=== PATIENT | male | born 1960 | race Caucasian/White ===

== ENCOUNTER → 2017-05-29 | Outpatient (CLI) | payer OTHER ==
[2017-05-29 10:50] LABS: CH 31.3; CHCM 34.4; HCT 46.9 % (39.0-53.0); HDW 2.73; HGB 15.9 gm/dL (13.0-17.5); MCHC 33.9 g/dL (31.0-37.0); MCV 91.6 fL (80.0-100.0); Mean Platelet Volume 6.8; RBC 5.13 m/uL (4.30-5.90); RDW 12.6 % (11.5-15.5); WBC 6.7 k/uL (3.8-10.6)
[2017-05-29 10:57] LABS: Appearance,Urine Clear (Clear); Bilirubin,Urine Negative (Negative); Glucose,Urine (UA) Negative (Negative); Ketones,Urine Negative (Negative); Leukocyte Esterase,Urine Negative (Negative); Nitrite,Urine Negative (Negative); Protein,Urine Trace (Negative); Specific Gravity,Urine 1.018 (1.001-1.035); UA Billing (MACRO vs. MICRO) CHEM; Urobilinogen,Urine <2.0 mg/dL (<2.0)
[2017-05-29 11:09] LABS: ALT 39 U/L (21-72); AST 21 U/L (17-59); Alkaline Phosphatase 88 U/L (38-126); Anion Gap 7 mmol/L; Blood Urea Nitrogen 21 mg/dL (9-20); Calcium 9.8 mg/dL (8.4-10.2); Carbon Dioxide 28 mmol/L (22-30); Chloride 102 mmol/L (98-107); Cholesterol 211 mg/dL (<200); Glucose 95 mg/dL (74-99); HDL Cholesterol 58 mg/dL (40-60); Non-African American GFR(MDRD) >60 (>60 ml/min/1.73 sqM); Potassium 4.6 mmol/L (3.5-5.1); Sodium 137 mmol/L (137-145); Total Bilirubin 0.9 mg/dL (0.2-1.3); Total Protein 7.5 g/dL (6.3-8.2)
== END | disposition home or self-care (01) ==
LOC: LABWHC1 09:56
PROVIDERS: ATTEND Internal Medicine
DX: E78.5 Hyperlipidemia, unspecified (principal); I10 Essential (primary) hypertension; Z12.5 Encounter for screening for malignant neoplasm of prostate
CPT/HCPCS: 80061; 80053; 85027; 81003; 36415; G0103

== ENCOUNTER → 2018-06-13 | Outpatient (CLI) | payer OTHER ==
[2018-06-13 10:36] LABS: HCT 50.3 % (39.0-53.0); HGB 16.4 gm/dL (13.0-17.5); MCH 30.2 pg (25.0-35.0); MCHC 32.7 g/dL (31.0-37.0); MCV 92.4 fL (80.0-100.0); Mean Platelet Volume 6.9; Platelet Count 261 k/uL (150-450); RBC 5.44 m/uL (4.30-5.90); RDW 12.9 % (11.5-15.5)
[2018-06-13 11:08] LABS: Appearance,Urine Clear (Clear); Bilirubin,Urine Negative (Negative); Blood,Urine Negative (Negative); Color,Urine Yellow; Glucose,Urine (UA) Negative (Negative); Ketones,Urine Negative (Negative); Leukocyte Esterase,Urine Negative (Negative); Nitrite,Urine Negative (Negative); Protein,Urine Negative (Negative); Urobilinogen,Urine <2.0 mg/dL (<2.0)
[2018-06-13 17:33] LABS: Albumin 4.6 g/dL (3.80-4.90); Albumin/Globulin Ratio 2.19 (1.20-2.10); Anion Gap 8.8 mmol/L (4.00-12.00); Calcium 9.7 mg/dL (8.7-10.3); Carbon Dioxide 28.2 mmol/L (21.6-31.8); Globulin 2.1 g/dL (2.1-3.7); LDL Cholesterol,Calculated 80.6 mg/dL (0.0-131.0); Potassium 4.5 mmol/L (3.5-5.5); Total Bilirubin 0.8 mg/dL (0.2-1.2); Total Protein 6.7 g/dL (6.2-8.2); VLDL Calculation 34.4 mg/dL (5.00-40.00)
== END | disposition home or self-care (01) ==
LOC: LABWHC1 09:51
PROVIDERS: ATTEND Internal Medicine
DX: Z00.00 Encounter for general adult medical examination without abnormal findings (principal); I10 Essential (primary) hypertension; Z12.5 Encounter for screening for malignant neoplasm of prostate
CPT/HCPCS: 80061; 80053; 84443; 85027; 81003; 36415; G0103

== ENCOUNTER 2018-12-25 08:20 | Day surgery (SDC) | payer OTHER ==
[2018-12-23 11:07] VITALS: BMI 29.5
[~2018-12-25 08:20] MED LIST: LIDOCAINE 1% 20 ML VIAL (10MG/ML) FOR IV START INTRADERMA PRN
[2018-12-25 08:37] VITALS: TEMP 97.6
[2018-12-25] MEDS: LACTATED RINGERS 1,000 ML IV SCH ×2 (08:43→09:17)
[2018-12-25] MEDS ORDERED: PROPOFOL 10 MG/ML 20 ML VIAL IV ONE (09:17)
[2018-12-25] MEDS ORDERED: MIDAZOLAM 2 MG/2 ML VIAL ONE (09:17)
[2018-12-25 10:26] VITALS: PULSE 82
--- NOTE | 2018-12-25 10:28 | P.PCN ---
Date of Procedure: 12/25/18 Description of Procedure: BRIEF HISTORY: Pleasant 58-year-old male who presents for screening for malignant colon cancer. The patient denies any symptoms of abdominal pain, weight loss, blood per rectum or change in his bowel habits. No prior colonoscopy reported. No family history of colon cancer. PROCEDURE PERFORMED: Colonoscopy with polypectomy. PREOPERATIVE DIAGNOSIS: Colorectal cancer screening, no prior colonoscopy reported. ESTIMATED BLOOD LOSS: Minimal. IV sedation per Anesthesia. PROCEDURE: After informed consent was obtained, the patient, was brought into the endoscopy unit. IV sedation was administered by Anesthesia under continuous monitoring. Digital rectal examination was normal. Initially the Olympus CF-190 flexible video colonoscope was then inserted in the rectum, gradually advanced into the cecum without any difficulty. Careful examination was performed as the scope was gradually being withdrawn. Ileocecal valve and the appendiceal orifice were visualized and appeared normal. Prep was good. Mucosa of the cecum, ascending colon, transverse colon, descending colon, sigmoid colon, and rectum appeared normal. A small polyp in the sigmoid colon measuring 2 mm in size was removed with cold forcep polypectomy. Retroflexion was performed in the rectum and no lesions were seen, with mild internal hemorrhoids noted. The patient tolerated the procedure well. IMPRESSION: Diminutive sigmoid polyp removed with cold forcep polypectomy. Mild internal hemorrhoids. Normal-appearing colon from rectum to cecum. RECOMMENDATIONS: Findings of this examination were discussed with the patient and his . Okay to resume diet. Await pathology from polypectomy. Anticipate repeat colonoscopy in 5 years pending pathology from polypectomy.
[2018-12-25 10:44] VITALS: BP 113/75; RESP 18
== END 2018-12-25 11:14 | disposition home or self-care (01) ==
LOC: ORWHC2ENDO 08:20
PROVIDERS: ATTEND Internal Medicine
DX: Z12.11 Encounter for screening for malignant neoplasm of colon (principal); K63.5 Polyp of colon; K64.8 Other hemorrhoids; I10 Essential (primary) hypertension; N40.0 Benign prostatic hyperplasia without lower urinary tract symptoms; Z79.899 Other long term (current) drug therapy; Z79.82 Long term (current) use of aspirin; Z87.891 Personal history of nicotine dependence
CPT/HCPCS: 88305; 45380; J2250; J2704

== ENCOUNTER → 2021-06-13 | Outpatient (CLI) | payer BC | LOC: CPPFTMAIN 07:28 | PROVIDERS: ATTEND Internal Medicine | DX: R05.3 Chronic cough (principal); Z87.891 Personal history of nicotine dependence | CPT/HCPCS: 94060; 94726; 94729 ==

== ENCOUNTER → 2021-06-20 | Outpatient (CLI) | payer BC ==
[2021-06-20 10:41] LABS: Basophils % (A) 1 %; Eosinophils # (A) 0.1 k/uL (0-0.7); Eosinophils % (A) 1 %; HGB 16.6 gm/dL (13.0-17.5); Lymphocytes % (A) 23 %; MCH 31.7 pg (25.0-35.0); MCHC 33.8 g/dL (31.0-37.0); MCV 93.8 fL (80.0-100.0); Mean Platelet Volume 7.2; Monocytes # (A) 0.6 k/uL (0-1.0); Monocytes % (A) 7 %; Neutrophils # (A) 5.8 k/uL (1.3-7.7); Neutrophils % (A) 67 %; Platelet Count 229 k/uL (150-450); RBC 5.23 m/uL (4.30-5.90); RDW 12.3 % (11.5-15.5); WBC 8.7 k/uL (3.8-10.6)
== END | disposition home or self-care (01) ==
LOC: LABWHC1 10:04
PROVIDERS: ATTEND Internal Medicine
DX: D72.829 Elevated white blood cell count, unspecified (principal)
CPT/HCPCS: 36415; 85025

== ENCOUNTER → 2021-12-20 | Outpatient (CLI) | payer BC ==
--- NOTE | 2021-12-20 16:03 | XR ---
EXAMINATION TYPE: XR knee complete LT DATE OF EXAM: 12/20/2021 COMPARISON: None available INDICATION: Pain TECHNIQUE: 3 views of the left knee FINDINGS: Marked degenerative changes of the left knee joint with osteophytosis, narrowing of the medial tibiof emoral compartment, subchondral sclerotic changes, narrowing of the patellofemoral compartment and pa tellofemoral osteophytosis. Mild lateral tibial subluxation in relation to the femur. No definite acute fracture line identified. No patellar dislocation. Questionable small to moderate knee joint effusion. IMPRESSION: Advanced degenerative changes as described above.
== END | disposition home or self-care (01) ==
LOC: RADXRMAIN 13:43
PROVIDERS: ATTEND Internal Medicine
DX: M17.12 Unilateral primary osteoarthritis, left knee (principal)

== ENCOUNTER → 2022-04-30 | Outpatient (CLI) | payer BC ==
--- NOTE | 2022-04-30 12:18 | CT ---
EXAMINATION TYPE: CT left knee - [facility] Protocol DATE OF EXAM: 04/30/2022 COMPARISON: None HISTORY: Left knee pain-[facility] surgical planning CT DLP: 599.[address] [facility] surgical planning CT left knee was performed with CT obtained from the hips through the bilatera l ankles. FINDINGS: Mild degenerative narrowing is seen about the bilateral hips. No fracture or osseous lesion noted. Severe degenerative narrowing noted about the medial tibiofemoral joint space with associated spur formation. Moderate degenerative narrowing patellofemoral joint space with associated spur form ation noted as well. No evidence for acute fracture or osseous lesion. The ankles are unremarkable bi laterally. IMPRESSION: [facility] surgical planning CT left knee
== END | disposition home or self-care (01) ==
LOC: RADCTMAIN 09:33
PROVIDERS: ATTEND Orthopaedic Surgery
DX: M17.12 Unilateral primary osteoarthritis, left knee (principal)

== ENCOUNTER → 2022-05-21 | Outpatient (CLI) | payer BC ==
[2022-05-21 12:57] LABS: INR 0.9 (<1.2); Partial Thromboplastin Time 25.3 sec (22.0-30.0); Prothrombin Time 10.4 sec (9.0-12.0)
[2022-05-21 13:03] LABS: Appearance,Urine Clear (Clear); Bilirubin,Urine Negative (Negative); Blood,Urine Trace (Negative); Color,Urine Yellow; Glucose,Urine (UA) Negative (Negative); Hyaline Casts,Urine 1 /lpf (0-2); Ketones,Urine Negative (Negative); Leukocyte Esterase,Urine Negative (Negative); Mucus,Urine Many /hpf; Nitrite,Urine Negative (Negative); Protein,Urine Trace (Negative); RBC,Urine 1 /hpf (0-5); Specific Gravity,Urine 1.024 (1.001-1.035); Squamous Epithelial Cell,Urine <1 /hpf (0-4); Urobilinogen,Urine <2.0 mg/dL (<2.0); WBC,Urine 1 /hpf (0-5)
[2022-05-21 18:09] LABS: HCT 47.8 % (39.6-50.0); HGB 16.1 g/dL (13.0-17.0); MCH 31.2 pg (27.0-32.0); MCHC 33.7 g/dL (32.0-37.0); MCV 92.6 fL (80.0-97.0); Mean Platelet Volume 10.6 fL (9.5-12.2); NRBC Per 100 WBC 0 /100 WBCS (0.0-0.0); Platelet Count 260 X 10*3/uL (140-440); RBC 5.16 X 10*6/uL (4.40-5.60); RDW 12.5 % (11.5-14.5)
[2022-05-21 19:59] LABS: African American GFR (CKD) 110.2 (60.0-200.0); Albumin 4.6 g/dL (3.8-4.9); Albumin/Globulin Ratio 1.98 (1.60-3.17); Anion Gap 9.6 mmol/L (10.00-18.00); BUN/Creat Ratio 19.88 Ratio (12.00-20.00); Blood Urea Nitrogen 15.9 mg/dL (9.0-27.0); Calcium 9.8 mg/dL (8.7-10.3); Carbon Dioxide 27.1 mmol/L (20.0-27.5); Globulin 2.3 g/dL (1.6-3.3); Non-African American GFR(CKD) 95.1 (60.0-200.0); Potassium 4.6 mmol/L (3.5-5.5); Total Bilirubin 0.7 mg/dL (0.30-1.20)
== END | disposition home or self-care (01) ==
LOC: LABPAT 11:36
PROVIDERS: ATTEND Orthopaedic Surgery
DX: Z01.812 Encounter for preprocedural laboratory examination (principal); M17.12 Unilateral primary osteoarthritis, left knee
CPT/HCPCS: 80053; 81001; 85027; 85610; 85730; 87070; 93005

== ENCOUNTER → 2022-05-23 | Outpatient (CLI) | payer BC ==
--- NOTE | 2022-05-23 09:01 | US ---
EXAMINATION TYPE: US kidneys/renal and bladder DATE OF EXAM: 05/23/2022 COMPARISON: NONE CLINICAL HISTORY: R31.29 OTHER MICROSCOPIC HEMATURIA. Microscopic hematuria. EXAM MEASUREMENTS: Right Kidney: 12.3 x 5.0 x 5.3 cm Left Kidney: 12.1 x 6.3 x 6.5 cm Right Kidney: Anechoic area seen medially, probable dilated collecting system: 2.1 x 1.7 x 1.8 cm. Left Kidney: Limited visibility of lower pole. Bladder: Not fully distended, therefore limited. Appears anechoic. Bilateral Jets seen: Yes IMPRESSION: 1. Findings may represent very mild right pelvocaliectasis versus parapelvic renal cyst and could be correlated with CT scan. 2. No nephrolithiasis. 3. Limited assessment of bladder due to incomplete distention.
== END | disposition home or self-care (01) ==
LOC: RADUSWWP 08:16
PROVIDERS: ATTEND Internal Medicine
DX: R31.29 Other microscopic hematuria (principal)
CPT/HCPCS: 76770

== ENCOUNTER → 2022-06-20 | Outpatient (CLI) | payer BC ==
--- NOTE | 2022-06-22 07:06 | CT ---
EXAMINATION TYPE: CT abdomen wo/w con DATE OF EXAM: 06/20/2022 COMPARISON: Renal ultrasound May 23, 2022 HISTORY: Abnormal renal US. Pt not noting any pain or other concerns. CT DLP: 1276.90 mGycm Automated exposure control for dose reduction was used. TECHNIQUE: Helical acquisition of images was performed from the lung bases through the top of iliac crest to include entire abdomen. CONTRAST: Performed with Oral Contrast and without and with IV Contrast, patient injected with 70 mL of Isovue 300. FINDINGS: LUNG BASES: No significant abnormality is appreciated. LIVER/GB: There is 2.2 cm simple appearing thin-walled cyst in the posterior segment right hepatic lo be series 7 image 22. There is subcentimeter low dense lesion favored benign anteriorly axial image 1 9. PANCREAS: No significant abnormality is seen. SPLEEN: No significant abnormality is seen. ADRENALS: No significant abnormality is seen. KIDNEYS: Noncontrast images show no renal calculi bilaterally. Postcontrast images show symmetric cor ticomedullary uptake and excretion without hydronephrosis seen bilaterally. Adjacent to the right col lecting system there are a few small central parapelvic cysts including dominant 1.9 x 1.3 cm thin-wa lled cyst series 11 image 29 felt to be corresponding to the ultrasound abnormality. BOWEL: Normal appearing appendix extending from the cecum is noted. Oral contrast does not reach the level of the terminal ileum. There is no suspicious small or large bowel dilatation LYMPH NODES: No significant abnormality is seen. OSSEOUS STRUCTURES: Moderate multilevel spurring in the lumbar spine. There is multilevel disc space narrowing being most severe right L4-L5 level with endplate sclerosis and spurring. Moderate to sever e disc space narrowing L2-L3 and L5-S1 levels noted. Bridging osteophytes seen along the left aspect of the upper to mid thoracic spine. FREE AIR: No free air is visualized. OTHER: Mild calcified plaque of the aorta extends into branch vessels IMPRESSION: Source of patient's microscopic hematuria is not identified. The entire bilateral ureters and bladder are not assessed on this study. There is confirmation of simple central 1.9 cm thin-wall ed cyst in the right kidney mimicking dilated renal pelvis. No hydronephrosis or delayed excretion is seen bilaterally. No concerning focal renal masses are identified.
== END | disposition home or self-care (01) ==
LOC: RADCTMAIN 11:39
PROVIDERS: ATTEND Internal Medicine
DX: N28.1 Cyst of kidney, acquired (principal)
CPT/HCPCS: 74170; Q9967 ×2

== ENCOUNTER → 2022-06-27 | Outpatient (CLI) | payer BC ==
[2022-06-27 10:05] LABS: Appearance,Urine Clear (Clear); Bacteria,Urine Rare /hpf; Bilirubin,Urine Negative (Negative); Blood,Urine Small (Negative); Calcium Oxalate Crystals,Urine Occasional /hpf; Color,Urine Yellow; Glucose,Urine (UA) Negative (Negative); Ketones,Urine Negative (Negative); Leukocyte Esterase,Urine Negative (Negative); Mucus,Urine Moderate /hpf; Nitrite,Urine Negative (Negative); Protein,Urine Negative (Negative); RBC,Urine 1 /hpf (0-5); Specific Gravity,Urine 1.023 (1.001-1.035); Squamous Epithelial Cell,Urine <1 /hpf (0-4); Urobilinogen,Urine <2.0 mg/dL (<2.0); WBC,Urine 1 /hpf (0-5)
[2022-06-27 10:26] LABS: Prothrombin Time 10.2 sec (9.0-12.0)
[2022-06-27 15:41] LABS: Basophils # (A) 0.05 X 10*3/uL (0.00-0.10); Basophils % (A) 0.8 %; Eosinophils # (A) 0.17 X 10*3/uL (0.04-0.35); Eosinophils % (A) 2.6 %; HCT 49.5 % (39.6-50.0); HGB 16.7 g/dL (13.0-17.0); Immature Grans, Automated 0.3 %; Lymphocytes # (A) 2.07 X 10*3/uL (0.90-5.00); Lymphocytes % (A) 31.6 %; MCH 31.5 pg (27.0-32.0); MCHC 33.7 g/dL (32.0-37.0); MCV 93.4 fL (80.0-97.0); Mean Platelet Volume 10.6 fL (9.5-12.2); Monocytes # (A) 0.76 X 10*3/uL (0.20-1.00); Monocytes % (A) 11.6 %; NRBC Per 100 WBC 0 /100 WBCS (0.0-0.0); Neutrophils # (A) 3.49 X 10*3/uL (1.80-7.70); Neutrophils % (A) 53.1 %; Platelet Count 257 X 10*3/uL (140-440); RDW 12.8 % (11.5-14.5); WBC 6.56 X 10*3/uL (4.50-10.00)
[2022-06-27 16:04] LABS: African American GFR (CKD) 105.8 (60.0-200.0); Albumin 4.6 g/dL (3.8-4.9); Albumin/Globulin Ratio 2.09 (1.60-3.17); Anion Gap 9.8 mmol/L (10.00-18.00); BUN/Creat Ratio 18.69 Ratio (12.00-20.00); Blood Urea Nitrogen 16.5 mg/dL (9.0-27.0); Calcium 9.7 mg/dL (8.7-10.3); Carbon Dioxide 27.2 mmol/L (20.0-27.5); Globulin 2.2 g/dL (1.6-3.3); Non-African American GFR(CKD) 91.3 (60.0-200.0); Potassium 4.5 mmol/L (3.5-5.5); Total Bilirubin 0.7 mg/dL (0.30-1.20); Total Protein 6.7 g/dL (6.2-8.2)
== END | disposition home or self-care (01) ==
LOC: LABPAT 09:18
PROVIDERS: ATTEND Orthopaedic Surgery
DX: Z01.812 Encounter for preprocedural laboratory examination (principal); M17.12 Unilateral primary osteoarthritis, left knee
CPT/HCPCS: 80053; 81001; 85025; 85610; 85730; 87070

== ENCOUNTER 2022-07-23 10:44 | Day surgery (SDC) | payer BC ==
[~2022-07-23 10:44] MED LIST changes: +ACETAMINOPHEN TAB 500 MG TAB PO PRN; +HYDROmorphone 0.5 MG/0.5 ML SYRINGE IVP PRN; +LACTATED RINGERS 1,000 ML IV SCH; +LIDOCAINE 1% (10MG/ML) FOR IV START INTRADERMA PRN; -LIDOCAINE 1% 20 ML VIAL (10MG/ML) FOR IV START INTRADERMA PRN; +MELOXICAM 7.5 MG TAB PO PRN; +ONDANSETRON 4 MG/2 ML VIAL IVP PRN; +TRANEXAMIC ACID IN NACL,ISO-OS 1,000 MG in SALINE 1 100ML.BAG IVPB PRN
[2022-07-23] MEDS ORDERED: DEXAMETHASONE SOD PHOSPHATE 4 MG/ML 1 ML VIAL IVP ONE (11:47)
[2022-07-23] MEDS ORDERED: MIDAZOLAM 2 MG/2 ML VIAL IVP ONE (12:06)
[2022-07-23] MEDS ORDERED: ROPIVACAINE 5 MG/ML 30 ML VIAL ONE (12:45)
[2022-07-23] MEDS ORDERED: LIDOCAINE 2% INJ 20 MG/ML (2 ML VIAL) ONE (12:45)
[2022-07-23] MEDS ORDERED: TRANEXAMIC ACID IN NACL,ISO-OS 1,000 MG/100 ML BAG ONE (12:45)
[2022-07-23] MEDS ORDERED: PROPOFOL 10 MG/ML 20 ML VIAL IV ONE (12:45)
[2022-07-23] MEDS ORDERED: SUCCINYLCHOLINE CHLORIDE 200 MG/10 ML VIAL IV ONE (12:45)
[2022-07-23] MEDS ORDERED: HYDROmorphone (PF) 1 MG/ML ONE (12:45)
[2022-07-23] MEDS ORDERED: fentaNYL (PF) 50 MCG/ML 2 ML AMP ONE (12:45)
[2022-07-23] MEDS ORDERED: ROCURONIUM 10 MG/ML (5 ML VIAL) IV ONE (12:45)
[2022-07-23] MEDS ORDERED: DEXAMETHASONE SOD PHOSPHATE 4 MG/ML 1 ML VIAL ONE (12:45)
[2022-07-23] MEDS ORDERED: NEOSTIGMINE 1 MG/ML 10 ML VIAL ONE (12:45)
[2022-07-23] MEDS ORDERED: GLYCOPYRROLATE 0.2 MG/ML 2 ML VIAL ONE (12:45)
[2022-07-23] MEDS ORDERED: ceFAZolin 1,000 MG in SODIUM CHLORIDE 0.9% 1,000 ML IRRIGATION ONE (13:00)
[2022-07-23] MEDS ORDERED: LACTATED RINGERS 1,000 ML IV ONE ×2 (14:01→16:58)
[2022-07-23] MEDS ORDERED: ROPIVACAINE 1,100 MG, SODIUM CHLORIDE 0.9% 500 ML 330 ML, EMPTY PAIN BALL 1 EACH MISCELLANE PRN ×2 (15:35)
[2022-07-23 15:43] VITALS: TEMP 97
[2022-07-23] MEDS ORDERED: ONDANSETRON 4 MG/2 ML VIAL IVP ONE (16:00)
--- NOTE | 2022-07-23 16:00 | XR ---
EXAMINATION TYPE: XR knee limited LT DATE OF EXAM: 07/23/2022 3:56 PM INDICATION: Patient age:Male; 61 years old; Reason for study: post op in pacu; [facility]. COMPARISON: Left knee radiograph 12/20/2021 TECHNIQUE: The Left knee(s) was examined in frontal and crosstable lateral projections. FINDINGS: Post surgical changes from a left knee arthroplasty with distal femoral proximal tibial c omponents. Hardware appears intact with appropriate alignment. There is associated soft tissue gas an d edema. No acute fracture or dislocation. IMPRESSION: Post surgical changes from left knee arthroplasty. Hardware appears intact with appropriate alignment .
[2022-07-23] MEDS ORDERED: KETOROLAC 15 MG/ML 1 ML VIAL IVP ONE (16:04)
[2022-07-23] MEDS ORDERED: HYDROmorphone 0.5 MG/0.5 ML SYRINGE IVP ONE ×2 (16:10→16:40)
--- NOTE | 2022-07-23 16:21 | P.OP ---
Date of Procedure: 07/23/22 Procedure(s) Performed: left TKA [employer] COLBY robotic assisted Peraza 100 EBL 7 femur 7 tibia 40 patella 9 spacer PCL taken, CS poly used and CR femur PREOPERATIVE DIAGNOSIS: Left knee severe osteoarthritis genu varum POSTOPERATIVE DIAGNOSIS: Left knee severe osteoarthritis with genu varum OPERATION: Left knee cemented total replacement arthroplasty, robotic-assisted using Colby system from [employer]. ANESTHESIA: Regional with IPAC and ACB, General ESTIMATED BLOOD LOSS: 100 ml. PRODUCT DEVELOPMENT CONSULTANT: Alice Peraza PA-C (assistance with: patient positioning, retraction, exposure, hemostasis, leg positioning, implantation, irrigation, closure, dressing) COMPLICATIONS: None apparent. COMPONENTS IMPLANTED: Triathlon components INDICATIONS: Joe is a 61-year-old male with a history of left knee osteoarthritis. The patient's knee is end-stage, and conservative management has failed. The operation of knee replacement has been discussed at length in the office, as well as potential risks and complications. These are inclusive of, but not limited to: bleeding, infection, scarring, discomfort, blood vessel and nerve damage, need for further surgery, failure to relieve symptoms, persistence, recurrence, or worsening of problems, loosening, dislocation, wear, blood clot, pulmonary embolism, , gait dysfunction, stiffness, and other risks as discussed in the office. The patient elects to proceed and the consent form has been signed. PROCEDURE: The patient was taken to the operating room and positioned on the operating room table in the supine position. Anesthesia was initiated. Care was taken to make sure that all pressure points were adequately padded. The oper ative lower extremity was prepped and draped in the usual aseptic fashion using ChloraPrep. Ioban drape was used for the case and the patient received intravenous antibiotics within one hour of the incision. A pneumotourniquet and leg padilla were used for the case. The limb was exsanguinated with an Esmarch bandage and the tourniquet was inflated to 300 mmHg. Time-out was called confirming the patient's identity, side, procedure and administration of antibiotics and tranexamic acid. Note was made of moderate to severe genu varum deformity and approximately 10 flexion contracture. The incision was then created midline directly over the knee, carried down through skin and into the subcutaneous tissues and down to fascia. Full thickness subcutaneous medial flap was developed. Medial parapatellar arthrotomy was performed and the interior of the knee was inspected. There was end-stage osteoarthritis of the knee with a moderate to severe genu varum type deformity. The fat pad was excised and proximal medial release on the tibia was completed using meticulous dissection and a curved osteotome. Note was made of significant attrition of the anterior and significant degenerative appearance of the cruciate ligaments. The anterior cruciate ligament as well as the posterior cruciate ligament were taken down. The exposure was excellent. The knee was flexed 90 degrees and the patella was everted. 4 mm pins were placed in the medial epicondylectomy the femur and an optical array was attached for the Colby system. Similarly, another array was placed within the wound using 4 mm pins at the level of the tibial tubercle. The arrays were tightened and confirmed to be in good position based on the position of the camera. Hip center was taken, followed by double checking the femoral and tibial checkpoints prior to registering the femur and tibia respectively. Once an accurate register was accomplished, spurs were removed around the knee and any necessary soft tissue releases were performed. The knee was taken through range of motion with stress medially and laterally in extension. Once these spatial measurements were taken, stress was performed using curved osteotomes in the medial and lateral compartments with the knee at 90 of flexion. Pre-resection ligament balancing was performed. The extension and flexion spaces were then balanced according to these spatial measurements, by rotating and translating the planned femoral and tibial components in the coronal, sagittal, and axial planes until a satisfactory balance was obtained. Once the gap balancing adjustments were performed on the computer, the robotic arm on the Colby robot was used to create the tibial and femoral cuts. These cuts were performed without incident, and the cut fragments were then removed. Surfaces were further smoothed peripherally if necessary. Medial and lateral menisci were removed at this time, then the posterior capsule was cauterized and any residual loose soft tissue within the lateral posterior and medial aspects of the interior of the knee were removed. Patellar resurfacing was performed using a reamer. The size of the required patellar component was estimated and the patellar surface was then reamed down to a residual thickness which would recreate the gulkana thickness with the component. The exact placement of the patellar component was adjusted for position based on preoperative x-rays and intraoperative findings. Trial components were then placed and the tibial component was allowed to self center, with care not to allow any significant internal rotation of the component. The position of this tibial trial was then marked and confirmed to be very close to the standard landmark of the junction between the middle and medial 1/3 of the tibial tubercle. Confirmation of satisfactory soft tissue balance was confirmed based on the readings of the extension and flexion spaces and by kinematic testing of the knee manually. The latter showed excellent stability both medially and laterally, excellent alignment in the coronal plane, as well as excellent stability anteriorly and posteriorly with regard to tibial translation. There was no evidence of mid flexion instability. Trial components were removed and the cut surfaces of the bone were pulse lavaged thoroughly and dried. We planned for a CS liner and the tibia was prepared for a standard stemmed tibial Triathlon component. Cement was mixed on the back table and applied to the final components. Cement was then applied to the tibial surface and pressurized into the surface using finger pressurization technique. The tibial component was then applied and excess cement was removed after it was impacted securely and noted to be flush with the cut surface. In similar fashion, the cement was applied to the cut femoral surface, pressurized in using finger pressurization and the component was impacted into place. Excess cement was removed. The polyethylene spacer was then implanted and locked into position. The patellar component was then applied in similar technique and a patellar clamp was used to hold the patella in place as the cement hardened. Once the cement had fully hardened, the knee was reinspected. Any other cement extrusion was removed and final kinematic testing showed range of motion from 0 to 130 degrees with excellent stability, both medially and laterally and appropriate alignment of the leg. Patellar tracking was excellent. The knee was then thoroughly pulse lavaged with normal saline. The tourniquet was deflated and hemostasis was obtained with electrocautery and IV tranexamic acid, 1 g given at the start of the operation and 1 g at the start of closure. Closure was with interrupted 0 Vicryl sutures in the fascia/capsule and supplemented with #2 Quill, 2-0 Vicryl suture was used for the subcutaneous tissues and 4-0 Quill for the skin. Cyanoacrylate and Optefoam were then applied. A lightly compressive dressing was applied using Webril and an Garland wrap. The patient was then transferred to stretcher and taken to the recovery room in stable condition. Sponge and needle counts were correct.
[2022-07-23 17:55] VITALS: RESP 16
[2022-07-23 19:01] VITALS: BP 124/78; PULSE 95
--- NOTE | 2022-07-24 11:39 | P.ANPRN ---
Procedure Note - Anesthesia - Nerve Block Performed Left Adductor Canal Infusion Time Out Performed: Yes Date of Procedure: 07/23/22 Procedure Start Time: 12:05 Procedure Stop Time: 12:13 Location of Patient: PreOp Indication: Acute Post-Operative Pain, Requested by Surgeon Sedation Type: Sedate with meaningful contact maintained Preparation: Sterile Prep, Sterile Dressing Position: Supine Catheter: Indwelling Needle Types: Pajunk Needle Gauge: 21 Ultrasound used to visualize needle placement: Yes Ultrasound used to observe medication spread: Yes Blood Aspirated: No Pain Paresthesia on Injection Noted: No Resistance on Injection: Normal Image Stored and Saved: Yes Events: Uneventful and Well Tolerated (ropi .5% 20cc plus dexamethasone 4mg)
--- NOTE | 2022-07-24 11:40 | P.ANPRN ---
Procedure Note - Anesthesia - Nerve Block Performed Left iPack Single Time Out Performed: Yes Date of Procedure: 07/23/22 Procedure Start Time: 12:14 Procedure Stop Time: 12:17 Location of Patient: PreOp Indication: Acute Post-Operative Pain, Requested by Surgeon Sedation Type: Sedate with meaningful contact maintained Preparation: Sterile Prep Position: Supine Needle Types: Pajunk Needle Gauge: 21 Ultrasound used to visualize needle placement: Yes Ultrasound used to observe medication spread: Yes Blood Aspirated: No Pain Paresthesia on Injection Noted: No Resistance on Injection: Normal Image Stored and Saved: Yes Events: Uneventful and Well Tolerated (ropi .5% 25cc plus dexamethasone 4mg)
== END 2022-07-23 19:15 | disposition home or self-care (01) ==
LOC: OR 10:44
PROVIDERS: ATTEND Orthopaedic Surgery
DX: M17.12 Unilateral primary osteoarthritis, left knee (principal); M21.162 Varus deformity, not elsewhere classified, left knee; M24.562 Contracture, left knee; G89.18 Other acute postprocedural pain; I10 Essential (primary) hypertension; F10.20 Alcohol dependence, uncomplicated; Z79.811 Long term (current) use of aromatase inhibitors; Z79.891 Long term (current) use of opiate analgesic; Z79.01 Long term (current) use of anticoagulants; Z98.890 Other specified postprocedural states; Z87.891 Personal history of nicotine dependence
CPT/HCPCS: 27447; 64448; 64999; 76942; 97530; 97161; 73560; J2250; J1100; J0690 ×2; J2405; J2795; J1885; J1170; 88300

== ENCOUNTER → 2022-09-21 | Outpatient (CLI) | payer BC ==
[2022-09-21 16:44] LABS: Basophils # (A) 0.05 X 10*3/uL (0.00-0.10); Basophils % (A) 0.8 %; Eosinophils # (A) 0.13 X 10*3/uL (0.04-0.35); Eosinophils % (A) 2.2 %; HCT 47.1 % (39.6-50.0); HGB 15.4 g/dL (13.0-17.0); Immature Grans, Automated 0.2 %; Lymphocytes # (A) 1.73 X 10*3/uL (0.90-5.00); Lymphocytes % (A) 29.3 %; MCH 30.9 pg (27.0-32.0); MCHC 32.7 g/dL (32.0-37.0); MCV 94.4 fL (80.0-97.0); Mean Platelet Volume 10.4 fL (9.5-12.2); Monocytes # (A) 0.74 X 10*3/uL (0.20-1.00); Monocytes % (A) 12.5 %; NRBC Per 100 WBC 0 /100 WBCS (0.0-0.0); Neutrophils # (A) 3.24 X 10*3/uL (1.80-7.70); Platelet Count 250 X 10*3/uL (140-440); RBC 4.99 X 10*6/uL (4.40-5.60); RDW 12.6 % (11.5-14.5)
[2022-09-21 18:18] LABS: Chol/HDL Ratio 2.96 Ratio; LDL Cholesterol,Calculated 82.6 mg/dL (0.0-131.0); VLDL Calculation 18.74 mg/dL (5.00-40.00)
[2022-09-21 18:21] LABS: ALT 16 U/L (10-49); AST 17 U/L (14-35); African American GFR (CKD) 97.8 (60.0-200.0); Albumin 4.7 g/dL (3.8-4.9); Albumin/Globulin Ratio 1.93 (1.60-3.17); Alkaline Phosphatase 106 U/L (41-126); BUN/Creat Ratio 23.39 Ratio (12.00-20.00); Blood Urea Nitrogen 22.2 mg/dL (9.0-27.0); Calcium 9.8 mg/dL (8.7-10.3); Chloride 103 mmol/L (96-109); Globulin 2.4 g/dL (1.6-3.3); Glucose 97 mg/dL (70-110); Non-African American GFR(CKD) 84.4 (60.0-200.0); Potassium 4.8 mmol/L (3.5-5.5); Sodium 142 mmol/L (135-145); Total Protein 7.1 g/dL (6.2-8.2)
== END | disposition home or self-care (01) ==
LOC: LABWHC1 08:57
PROVIDERS: ATTEND Internal Medicine
DX: Z11.59 Encounter for screening for other viral diseases (principal); I10 Essential (primary) hypertension
CPT/HCPCS: 36415; 80053; 80061; 84443; 85025; 86803

== ENCOUNTER → 2023-11-20 | Outpatient (CLI) | payer BC, MEDICARE ==
[2023-11-20 14:37] LABS: Basophils # (A) 0.05 X 10*3/uL (0.00-0.10); Basophils % (A) 0.6 %; Eosinophils # (A) 0.07 X 10*3/uL (0.04-0.35); Eosinophils % (A) 0.9 %; HCT 48.4 % (39.6-50.0); HGB 16.1 g/dL (13.0-17.0); Lymphocytes # (A) 1.76 X 10*3/uL (0.90-5.00); Lymphocytes % (A) 22.4 %; MCH 31.1 pg (27.0-32.0); MCHC 33.3 g/dL (32.0-37.0); MCV 93.6 FL (80.0-97.0); Mean Platelet Volume 10.4 FL (9.5-12.2); Monocytes # (A) 0.89 X 10*3/uL (0.20-1.00); Monocytes % (A) 11.3 %; NRBC Per 100 WBC 0 X 10*3/uL (0.00-0.01); Neutrophils # (A) 5.07 X 10*3/uL (1.80-7.70); Neutrophils % (A) 64.5 %; Platelet Count 231 X 10*3/uL (140-440); RBC 5.17 X 10*6/uL (4.40-5.60); RDW 12.4 % (11.5-14.5); WBC 7.86 X 10*3/uL (4.50-10.00)
[2023-11-20 15:03] LABS: ALT 17 U/L (10-49); AST 18 U/L (14-35); Albumin 4.7 g/dL (3.8-4.9); Albumin/Globulin Ratio 1.96 Ratio (1.60-3.17); Alkaline Phosphatase 85 U/L (41-126); Blood Urea Nitrogen 19.2 mg/dL (9.0-27.0); Calcium 9.8 mg/dL (8.7-10.3); Carbon Dioxide 26.6 mmol/L (21.6-31.8); Chloride 103 mmol/L (96-109); Chol/HDL Ratio 2.96 Ratio; Globulin 2.4 g/dL (1.6-3.3); Glucose 108 mg/dL (70-110); LDL Cholesterol,Calculated 79.7 mg/dL (0.0-131.0); Potassium 4.4 mmol/L (3.5-5.5); Sodium 140 mmol/L (135-145); Total Bilirubin 0.9 mg/dL (0.3-1.2); Total Protein 7.1 g/dL (6.2-8.2)
== END | disposition home or self-care (01) ==
LOC: LABWHC1 08:48
PROVIDERS: ATTEND Internal Medicine
DX: Z12.5 Encounter for screening for malignant neoplasm of prostate (principal); I10 Essential (primary) hypertension
CPT/HCPCS: 80061; 80053; 84443; 85025; 36415; G0103

== ENCOUNTER → 2023-11-26 | Outpatient (CLI) | payer BC, MEDICARE ==
--- NOTE | 2023-11-26 20:52 | XR ---
EXAMINATION TYPE: XR shoulder complete RT DATE OF EXAM: 11/26/2023 3:04 PM CLINICAL INDICATION:Male, 63 years old with history of M25.511 PAIN IN RIGHT SHOULDER; [facility] COMPARISON: None TECHNIQUE: XR shoulder complete RT; examined in AP, internally rotated and scapular Y projections. FINDINGS: No evidence of acute osseous pathology, joint dislocation, or soft tissue swelling. The remaining po rtions of the visualized chest are unremarkable. IMPRESSION: No acute osseous pathology.
== END | disposition home or self-care (01) ==
LOC: RADXRMAIN 14:44
PROVIDERS: ATTEND Internal Medicine
DX: M25.511 Pain in right shoulder (principal)

== ENCOUNTER 2024-03-26 20:19 | Emergency (ER) | payer MEDICARE, BC ==
--- NOTE | 2024-03-26 21:05 | ED ---
URI HPI - General Chief Complaint: Upper Respiratory Infection Stated Complaint: covid + Time Seen by Provider: 03/26/24 20:31 Source: patient, RN notes reviewed Mode of arrival: ambulatory Limitations: no limitations - History of Present Illness Initial Comments: 63-year-old male with a history of hypertension presents emergency department accompanied by his with referral from urgent care for chief complaint of positive COVID diagnosis. Patient states that yesterday he began to experience body aches, fatigue, runny nose and cough recompleted at home COVID test that was positive. Patient contacted his primary care provider where he was prescribed Paxlovid. Patient states that he was instructed by his daughter to report to urgent care this evening for further evaluation. Urgent care prompted the patient to report to emergency department for concern of difficulty breathing. Currently patient is denying shortness of breath or difficulty breathing, chest pain or heart palpitations. - Related Data Home Medications Medication Instructions Recorded Confirmed Metoprolol Succinate (ER) [Toprol 50 mg PO DAILY 12/23/18 07/23/22 Xl] amLODIPine [Norvasc] 10 mg PO DAILY 12/23/18 07/23/22 Losartan Potassium [Cozaar] 25 mg PO DAILY 07/18/22 07/23/22 Previous Rx's Medication Instructions Recorded Aspirin [Adult Low Dose Aspirin EC] 81 mg PO BID #1 tab 07/23/22 HYDROcodone/APAP 7.5-325MG [[place] 1 - 2 tab PO Q6HR PRN #32 tab 07/23/22 7.5-325] Meloxicam 7.5 mg PO DAILY PRN #30 tablet 07/23/22 Ondansetron Odt [Zofran Odt] 4 mg PO Q8HR PRN #14 tab 07/23/22 Sennosides-Docusate Sodium 1 tab PO BID #60 tablet 07/23/22 [Senokot-S] Allergies Allergy/AdvReac Type Severity Reaction Status Date / Time No Known Allergies Allergy Verified 07/23/22 11:16 Review of Systems ROS Statement: Those systems with pertinent positive or pertinent negative responses have been documented in the HPI. ROS Other: All systems not noted in ROS Statement are negative. Past Medical History Past Medical History: Hypertension, Prostate Disorder Additional Past Medical History / Comment(s): BPH History of Any Multi-Drug Resistant Organisms: None Reported Additional Past Surgical History / Comment(s): BROKEN NOSE SURGERY (40 YRS AGO) Past Anesthesia/Blood Transfusion Reactions: No Reported Reaction Past Psychological History: No Psychological Hx Reported Smoking Status: Former smoker Past Alcohol Use History: Occasional Past Drug Use History: None Reported - Past Family History Father Family Medical History: Cancer Additional Family Medical History / Comment(s): PROSTATE CANCER General Exam Limitations: no limitations General appearance: alert, in no apparent distress Head exam: Present: atraumatic, normocephalic, normal inspection Eye exam: Present: normal appearance, PERRL, EOMI. Absent: scleral icterus, conjunctival injection, periorbital swelling ENT exam: Present: normal exam, mucous membranes moist, other (posterior oropharynx erythema) Neck exam: Present: normal inspection. Absent: tenderness, meningismus, lymphadenopathy Respiratory exam: Present: normal lung sounds bilaterally. Absent: respiratory distress, wheezes, rales, rhonchi, stridor Cardiovascular Exam: Present: regular rate, normal rhythm, tachycardia, normal heart sounds. Absent: systolic murmur, diastolic murmur, rubs, gallop, clicks GI/Abdominal exam: Present: soft, normal bowel sounds. Absent: distended, tenderness, guarding, rebound, rigid Course Vital Signs 03/26/24 03/26/24 20:41 21:03 Temperature 100.5 F H Pulse Rate 105 H Respiratory 20 20 Rate Blood Pressure 133/78 O2 Sat by Pulse 95 Oximetry Medical Decision Making - Medical Decision Making Was pt. sent in by a medical professional or institution (, PA, FENCE SETTER, urgent care, hospital, or senior care...) When possible be specific @ -Patient was advised by urgent care to report to the emergency department for further evaluation of COVID diagnosis Did you speak to anyone other than the patient for history (EMS, parent, family, police, friend...)? What history was obtained from this source @ -The patient's at bedside states that the patient has been taking his antiviral as prescribed from his primary care provider Did you review nursing and triage notes (agree or disagree)? Why? @ -I reviewed and agree with nursing and triage notes Were old charts reviewed (outside hosp., previous admission, EMS record, old EKG, old radiological studies, urgent care reports/EKG's, senior care records)? Report findings @ -No old charts were reviewed Differential Diagnosis (chest pain, altered mental status, abdominal pain women, abdominal pain men, vaginal bleeding, weakness, fever, dyspnea, syncope, headache, dizziness, GI bleed, back pain, seizure, CVA, palpatations, mental health, musculoskeletal)? @ -COVID 19, RSV, influenza, pneumonia, acute bronchitis, URI, this list is not all inclusive EKG interpreted by me (3pts min.). @ -None X-rays interpreted by me (1pt min.). @ -None done CT interpreted by me (1pt min.). @ -None done U/S interpreted by me (1pt. min.). @ -None done What testing was considered but not performed or refused? (CT, X-rays, U/S, labs)? Why? @ -X-ray was considered but deferred at this time. Patient's pulmonary physical examination benign with no adventitious sounds auscultated therefore there is minimal clinical concern for pulmonary pathology at this time. What meds were considered but not given or refused? Why? @ -None Did you discuss the management of the patient with other professionals (professionals i.e. , PA, FENCE SETTER, lab, RT, psych nurse, social work case manager, tire inspector, teacher, chief wellness officer, correctional casework specialist)? Give summary @ -No Was smoking cessation discussed for >3mins.? @ -No Was critical care preformed (if so, how long)? @ -No Were there social determinants of health that impacted care today? How? (Homelessness, low income, unemployed, alcoholism, drug addiction, transportation, low edu. Level, literacy, decrease access to med. care, prison, rehab)? @ -No Was there de-escalation of care discussed even if they declined (Discuss DNR or withdrawal of care, Hospice)? DNR status @ -No What co-morbidities impacted this encounter? (DM, HTN, Smoking, COPD, CAD, Cancer, CVA, ARF, Chemo, Hep., AIDS, mental health diagnosis, sleep apnea, morbid obesity)? @ -None Was patient admitted / discharged? Hospital course, mention meds given and route, prescriptions, significant lab abnormalities, going to OR and other pertinent info. @ -Discharge. 63-year-old male with positive COVID diagnosis. Patient states vitals reveal a low-grade fever of 100.1 and mild tachycardia. Patient's oxygen saturation is within normal limits on room air. Physical examination benign with no acute findings. Patient is provided with dose of Motrin in the emergency department as he last took Tylenol approximately 3 hours before arrival to the emergency department. Recommend that patient continue antiviral as prescribed and continue to cycle Tylenol Motrin at home for symptomatic relief. Strict return parameters lyle with the patient such as worsening shortness of breath, difficulty breathing, low oxygen saturation on room air. At this time patient is stable for discharge home and he feels comfortable returning home as well. Discussed with Dr. Rivera. Undiagnosed new problem with uncertain prognosis? @ -No Drug Therapy requiring intensive monitoring for toxicity (Heparin, Nitro, Insulin, Cardizem)? @ -No Were any procedures done? @ -No Diagnosis/symptom? @ -COVID19 Acute, or Chronic, or Acute on Chronic? @ -Acute Uncomplicated (without systemic symptoms) or Complicated (systemic symptoms)? @ -Uncomplicated Side effects of treatment? @ -No Exacerbation, Progression, or Severe Exacerbation? @ -No Poses a threat to life or bodily function? How? (Chest pain, [place], [place], pneumonia, PE, COPD, DKA, ARF, appy, cholecystitis, CVA, Diverticulitis, Homicidal, Suicidal, threat to staff... and all critical care pts) @ -No Disposition Clinical Impression: COVID Disposition: HOME SELF-CARE Condition: Good Instructions (If sedation given, give patient instructions): COVID-19 (Coronavirus Disease 2019) (ED) Additional Instructions: Return to the emergency department for any new or worsening symptoms. Recommend that you continue full course of antiviral as prescribed. Continue Tylenol Motrin at home for fever and symptomatic relief. Increase oral hydration. Is patient prescribed a controlled substance at d/c from ED?: No Referrals: Jon Andres DO [Primary Care Provider] - 1-2 days Time of Disposition: 21:17
[2024-03-26] MEDS: IBUPROFEN 800 MG TAB PO STA (21:14)
[2024-03-26 21:35] VITALS: BP 125/79; PULSE 98; RESP 22; TEMP 100.2
== END 2024-03-26 22:04 | disposition home or self-care (01) ==
LOC: EC 20:19
CPT/HCPCS: 99284

== ENCOUNTER 2024-03-27 18:46 | Emergency (ER) | payer MEDICARE, BC ==
--- NOTE | 2024-03-27 19:38 | ED ---
General Adult HPI - General Chief complaint: ENT Stated complaint: Difficulty swallowing Time Seen by Provider: 03/27/24 19:19 Source: patient, RN notes reviewed, old records reviewed Mode of arrival: ambulatory Limitations: no limitations - History of Present Illness Initial comments: 63-year-old male with recent diagnosis of COVID presents for evaluation of sore throat and painful swallowing. Patient has been running fever and has been taking Tylenol and Motrin [id number]. He is currently on Paxlovid which was prescribed by his primary care provider. He has no difficulty breathing. He has cough productive of brown sputum. No chest pain. No abdominal pain. Poor appetite. - Related Data Home Medications Medication Instructions Recorded Confirmed Metoprolol Succinate (ER) [Toprol 50 mg PO DAILY 12/23/18 07/23/22 Xl] amLODIPine [Norvasc] 10 mg PO DAILY 12/23/18 07/23/22 Losartan Potassium [Cozaar] 25 mg PO DAILY 07/18/22 07/23/22 Previous Rx's Medication Instructions Recorded Aspirin [Adult Low Dose Aspirin EC] 81 mg PO BID #1 tab 07/23/22 HYDROcodone/APAP 7.5-325MG [[place] 1 - 2 tab PO Q6HR PRN #32 tab 07/23/22 7.5-325] Meloxicam 7.5 mg PO DAILY PRN #30 tablet 07/23/22 Ondansetron Odt [Zofran Odt] 4 mg PO Q8HR PRN #14 tab 07/23/22 Sennosides-Docusate Sodium 1 tab PO BID #60 tablet 07/23/22 [Senokot-S] Allergies Allergy/AdvReac Type Severity Reaction Status Date / Time No Known Allergies Allergy Verified 03/27/24 19:02 Review of Systems ROS Statement: Those systems with pertinent positive or pertinent negative responses have been documented in the HPI. ROS Other: All systems not noted in ROS Statement are negative. Past Medical History Past Medical History: Hypertension, Prostate Disorder Additional Past Medical History / Comment(s): BPH History of Any Multi-Drug Resistant Organisms: None Reported Additional Past Surgical History / Comment(s): BROKEN NOSE SURGERY (40 YRS AGO) Past Anesthesia/Blood Transfusion Reactions: No Reported Reaction Past Psychological History: No Psychological Hx Reported Smoking Status: Former smoker Past Alcohol Use History: Occasional Past Drug Use History: None Reported - Past Family History Father Family Medical History: Cancer Additional Family Medical History / Comment(s): PROSTATE CANCER General Exam Limitations: no limitations General appearance: alert, in no apparent distress Head exam: Present: atraumatic, normocephalic Eye exam: Present: normal appearance, PERRL ENT exam: Present: normal oropharynx, mucous membranes dry Neck exam: Present: normal inspection. Absent: tenderness, meningismus Respiratory exam: Present: normal lung sounds bilaterally. Absent: respiratory distress, wheezes Cardiovascular Exam: Present: normal rhythm, tachycardia GI/Abdominal exam: Present: soft. Absent: distended Neurological exam: Present: alert Psychiatric exam: Present: normal affect Skin exam: Present: warm, dry, intact Course Vital Signs 03/27/24 03/27/24 18:56 20:59 Temperature 100.9 F H Pulse Rate 130 H 95 Respiratory 18 20 Rate Blood Pressure 124/65 144/81 O2 Sat by Pulse 96 96 Oximetry Medical Decision Making - Medical Decision Making Was pt. sent in by a medical professional or institution (, PA, WHEEL PRESS OPERATOR, urgent care, hospital, or fpc...) When possible be specific @ -[No] Did you speak to anyone other than the patient for history (EMS, parent, family, police, friend...)? What history was obtained from this source @ -[No] Did you review nursing and triage notes (agree or disagree)? Why? @ -[I reviewed and agree with nursing and triage notes] Were old charts reviewed (outside hosp., previous admission, EMS record, old EKG, old radiological studies, urgent care reports/EKG's, fpc records)? Report findings @ -[No old charts were reviewed] Differential Dyspnea: Coronary syndrome, arrhythmia, tamponade, asthma, COPD, pulmonary embolism, pneumonia, pneumothorax, pulmonary effusion, anaphylaxis, diabetic ketoacidosis, flailed chest, pulmonary contusion, diaphragmatic rupture, anemia, neuromuscular, this is not meant to be an all-inclusive list. EKG interpreted by me (3pts min.). @Sinus tachycardia rate of 143, normal [place] interval, QRS duration 88, QTc [address] segment elevation X-rays interpreted by me (1pt min.). @ -Chest x-ray negative for focal pneumonia CT interpreted by me (1pt min.). @ -[None done] U/S interpreted by me (1pt. min.). @ -[None done] What testing was considered but not performed or refused? (CT, X-rays, U/S, labs)? Why? @ -[None] What meds were considered but not given or refused? Why? @ -[None] Did you discuss the management of the patient with other professionals (professionals i.e. , PA, WHEEL PRESS OPERATOR, lab, RT, psych nurse, social sciences department chair, logistics team lead, teacher, child support officer, insurance case manager)? Give summary @ -[No] Was smoking cessation discussed for >3mins.? @ -[No] Was critical care preformed (if so, how long)? @ -[No] Were there social determinants of health that impacted care today? How? (Homelessness, low income, unemployed, alcoholism, drug addiction, transportation, low edu. Level, literacy, decrease access to med. care, alf, rehab)? @ -[No] Was there de-escalation of care discussed even if they declined (Discuss DNR or withdrawal of care, Hospice)? DNR status @ -[No] What co-morbidities impacted this encounter? (DM, HTN, Smoking, COPD, CAD, Cancer, CVA, ARF, Chemo, Hep., AIDS, mental health diagnosis, sleep apnea, mo rbid obesity)? @ -[None] Was patient admitted / discharged? Hospital course, mention meds given and route, prescriptions, significant lab abnormalities, going to OR and other pertinent info. @ -63-year-old male with recent diagnosis of coronavirus with sore throat and difficulty swallowing. Patient is initially tachycardic which improved with fluids and Toradol. Patient was prescribed Paxlovid by his primary care provider. He has a normal CBC, normal CMP. He I was able to have him swallow ice water in the emergency department without difficulty. Return parameters are discussed. Undiagnosed new problem with uncertain prognosis? @ -[No] Drug Therapy requiring intensive monitoring for toxicity (Heparin, Nitro, Insulin, Cardizem)? @ -[No] Were any procedures done? @ -[No] Diagnosis/symptom? @ -[Sore throat secondary to coronavirus Acute, or Chronic, or Acute on Chronic? @Acute Uncomplicated (without systemic symptoms) or Complicated (systemic symptoms)? @ -[default] Side effects of treatment? @ -[No] Exacerbation, Progression, or Severe Exacerbation? @ -[No] Poses a threat to life or bodily function? How? (Chest pain, [place], [place], pneumonia, PE, COPD, DKA, ARF, appy, cholecystitis, CVA, Diverticulitis, Homicidal, Suicidal, threat to staff... and all critical care pts) @Low risk at this time - Lab Data Result diagrams: 03/27/24 20:25 Lab Results 03/27/24 Range/Units 20:25 WBC 9.5 (3.8-10.6) k/uL RBC 5.07 (4.30-5.90) m/uL Hgb 15.7 (13.0-17.5) gm/dL Hct 46.5 (39.0-53.0) % MCV 91.8 (80.0-100.0) fL MCH 31.0 (25.0-35.0) pg MCHC 33.7 (31.0-37.0) g/dL RDW 12.7 (11.5-15.5) % Plt Count 165 (150-450) k/uL MPV 7.9 Neutrophils % 77 % Lymphocytes % 12 % Monocytes % 8 % Eosinophils % 0 % Basophils % 0 % Neutrophils # 7.3 (1.3-7.7) k/uL Lymphocytes # 1.1 (1.0-4.8) k/uL Monocytes # 0.8 (0-1.0) k/uL Eosinophils # 0.0 (0-0.7) k/uL Basophils # 0.0 (0-0.2) k/uL Disposition Clinical Impression: COVID, Sore throat Disposition: HOME SELF-CARE Condition: Fair Instructions (If sedation given, give patient instructions): Strep Throat (ED), COVID-19 (Coronavirus Disease 2019) (ED) Is patient prescribed a controlled substance at d/c from ED?: No Referrals: Jon Andres DO [Primary Care Provider] - 1-2 days
--- NOTE | 2024-03-27 20:24 | XR ---
EXAMINATION TYPE: XR chest 1V portable DATE OF EXAM: 03/27/2024 COMPARISON: None INDICATION: COVID TECHNIQUE: Single frontal view of the chest is obtained. FINDINGS: The heart size is normal. The pulmonary vasculature is normal. The lungs are clear. IMPRESSION: 1. No acute pulmonary process radiographically apparent. [facility], , 03/27/2024 8:22 PM
[2024-03-27] MEDS: KETOROLAC 15 MG/ML 1 ML VIAL IVP STA (20:28)
[2024-03-27] MEDS: SODIUM CHLORIDE 0.9% 1,000 ML IV ONE (20:29)
[2024-03-27 20:42] LABS: Basophils % (A) 0 %; Eosinophils % (A) 0 %; HCT 46.5 % (39.0-53.0); HGB 15.7 gm/dL (13.0-17.5); Lymphocytes # (A) 1.1 k/uL (1.0-4.8); Lymphocytes % (A) 12 %; MCHC 33.7 g/dL (31.0-37.0); MCV 91.8 fL (80.0-100.0); Mean Platelet Volume 7.9; Monocytes # (A) 0.8 k/uL (0-1.0); Monocytes % (A) 8 %; Neutrophils # (A) 7.3 k/uL (1.3-7.7); Neutrophils % (A) 77 %; Platelet Count 165 k/uL (150-450); RBC 5.07 m/uL (4.30-5.90); RDW 12.7 % (11.5-15.5); WBC 9.5 k/uL (3.8-10.6)
[2024-03-27 20:59] VITALS: BP 144/81; PULSE 95; RESP 20
[2024-03-27 21:34] LABS: ALT 14 U/L (4-49); AST 28 U/L (17-59); African American GFR (CKD) >90 (>60 ml/min/1.73 sqM); Albumin 3.8 g/dL (3.5-5.0); Alkaline Phosphatase 61 U/L (38-126); Anion Gap 6 mmol/L; Blood Urea Nitrogen 15 mg/dL (9-20); Carbon Dioxide 28 mmol/L (22-30); Chloride 98 mmol/L (98-107); Glucose 108 mg/dL (74-99); Magnesium 1.9 mg/dL (1.6-2.3); Non-African American GFR(CKD) >90 (>60 ml/min/1.73 sqM); Potassium 4.1 mmol/L (3.5-5.1); Sodium 132 mmol/L (137-145); Total Bilirubin 1.1 mg/dL (0.2-1.3); Total Protein 6.3 g/dL (6.3-8.2)
[2024-03-27 21:55] VITALS: TEMP 99.5
== END 2024-03-27 22:00 | disposition home or self-care (01) ==
LOC: EC 18:46
CPT/HCPCS: 36415; 71045; 80053; 83735; 85025; 93005; 96361; 96374; 99284